=== PATIENT | male | born 1990 | race Two or more races ===

== ENCOUNTER 2024-02-14 09:50 | Emergency (ER) | payer OTHER ==
[~2024-02-14] VITALS: Ht 180.3 cm; Wt 74.4 kg
[2024-02-14] MEDS ORDERED: LANTUS SOL100 UNIT/1 SQ (10:11)
[2024-02-14] MEDS ORDERED: INSULIN REGULAR, HUMAN 1,000 UNIT/10 ML UNITS IV ONE (10:45)
[2024-02-14] MEDS ORDERED: 0.9 % SODIUM CHLORIDE 1,000 ML IV SCH (10:45)
[2024-02-14] MEDS ORDERED: ONDANSETRON HCL 2 MG/ML VIAL ONE (10:53)
[2024-02-14] MEDS ORDERED: ONDANSETRON HCL 2 MG/ML VIAL IV ONE (11:00)
[2024-02-14 11:20] LABS: HEMATOCRIT 47.8 % (39.0-48.0); HEMOGLOBIN 16.5 g/dL (13-16.00); MEAN CELL VOLUME 90.3 fL (80.0-100.00); MEAN CORPUSCULAR HEMOGLOBIN 31.1 pg (27.00-32.0); MEAN CORPUSCULAR HGB CONC 34.4 g/dl (32.0-36.0); PLATELET COUNT 199 K/uL (150-450)
[2024-02-14 11:23] LABS: URINE APPEARANCE Clear; URINE BILIRRUBIN Negative (NEGATIVE); URINE BLOOD Negative; URINE COLOR Yellow; URINE LEUKOCYTE Negative; URINE NITRATE Negative; URINE PROTEIN Negative (NEGATIVE)
[2024-02-14 11:29] LABS: URINE BACTERIA 0 uL (0.0-1933); URINE EPITHELIAL CELLS 0.4 uL (0.0-38.8); URINE GLUCOSE >=1000 MG/DL (NEGATIVE); URINE KETONE >=160 (NEGATIVE); URINE WBC 0.8 uL (0.0-23.2)
[2024-02-14 11:52] LABS: ALBUMIN 4.5 gm/dL (3.4-5.0); BILIRUBIN TOTAL 1.8 mg/dL (0.3-1.2); CALCIUM 9.8 mg/dL (8.5-10.1); CREATININE SERUM 1.04 mg/dL (0.70-1.30); GFR 82.76; GLOBULINA 3.9 G/DL (2.4-3.5); POTASSIUM 4.82 mEq/L (3.5-5.1); TOTAL PROTEIN 8.4 gm/dL (6.4-8.2)
[2024-02-14] MEDS ORDERED: INSULIN REGULAR HUMAN 100 UNIT IV ONE (12:45)
[2024-02-14] MEDS ORDERED: INSULIN REGULAR, HUMAN 100 UNITS in 0.9 % SODIUM CHLORIDE 100 ML IV SCH (13:00)
[2024-02-14 13:17] LABS: ABG PH 7.387 (7.35-7.45); ABG PO2 114.3 mmHg (80-100); BICARBONATE 18.8 mmol/l (23-25); SaO2 98.3 %; Tco2 19.8 mmol/l
[2024-02-14 13:18] LABS: allen test SATISFACTORY; o2 21 %; puncture site RADIAL LEFT
== END 2024-02-14 16:23 | disposition home or self-care (01) ==
LOC: ER 09:51
PROVIDERS: Emergency Medicine
DX: E11.65 Type 2 diabetes mellitus with hyperglycemia (principal); Z91.013 Allergy to seafood; R53.1 Weakness

== ENCOUNTER 2024-04-04 08:06 | Emergency (ER) | payer OTHER ==
[~2024-04-04] VITALS: Ht 180.3 cm; Wt 79.4 kg
[~2024-04-04 08:06] MED LIST: LANTUS SOL100 UNIT/1 SQ
[2024-04-04] MEDS ORDERED: INSULIN REGULAR HUMAN (08:31)
[2024-04-04] MEDS ORDERED: INSULIN REGULAR, HUMAN 1,000 UNIT/10 ML UNITS SUBCUTANEO ONE ×2 (08:45→12:00)
[2024-04-04] MEDS ORDERED: ONDANSETRON HCL 2 MG/ML VIAL IV ONE (09:00)
[2024-04-04] MEDS ORDERED: FAMOtidine 10 MG/ML (4ML VIAL) IV ONE (09:00)
[2024-04-04] MEDS ORDERED: 0.9 % SODIUM CHLORIDE 1,000 ML IV ONE (09:00)
[2024-04-04 09:37] LABS: HEMATOCRIT 45.1 % (39.0-48.0); HEMOGLOBIN 15.8 g/dL (13-16.00); MEAN CELL VOLUME 89.5 fL (80.0-100.00); MEAN CORPUSCULAR HEMOGLOBIN 31.3 pg (27.00-32.0); PLATELET COUNT 230 K/uL (150-450); RED BLOOD COUNT 5.04 M/uL (4.00-6.00); RED CELL DISTRIBUTION WIDTH 13.2 % (11.5-14.5)
[2024-04-04 09:50] LABS: ABG PO2 103.1 mmHg (80-100); ABG pCO2 34.4 mmHg (35-45); BASE EXCESS -8.9 mmol/l; BICARBONATE 16.5 mmol/l (23-25); SaO2 96.9 %; Tco2 17.6 mmol/l
[2024-04-04 09:56] LABS: BILIRUBIN TOTAL 1.95 mg/dL (0.3-1.2); CALCIUM 10.9 mg/dL (8.5-10.1); CREATININE SERUM 1.16 mg/dL (0.70-1.30); GFR 72.96; GLOBULINA 3.5 G/DL (2.4-3.5); POTASSIUM 5.15 mEq/L (3.5-5.1); TOTAL PROTEIN 8.5 gm/dL (6.4-8.2)
[2024-04-04 10:19] LABS: PH,URINE 5.5 (5.0-8.0); URINE APPEARANCE Clear; URINE BILIRRUBIN Negative (NEGATIVE); URINE BLOOD NHT; URINE COLOR Yellow; URINE LEUKOCYTE Negative; URINE NITRATE Negative; URINE PROTEIN Negative (NEGATIVE); URINE UROBILINOGEN 0.2 E.U./dl
[2024-04-04 10:22] LABS: URINE RBC 12.6 uL (0.0-20.8); URINE WBC 2.7 uL (0.0-23.2)
[2024-04-04 10:27] LABS: URINE BACTERIA 3.7 uL (0.0-1933); URINE EPITHELIAL CELLS 0.9 uL (0.0-38.8); URINE GLUCOSE >=1000 MG/DL (NEGATIVE); URINE KETONE >=160 (NEGATIVE)
[2024-04-04 12:29] LABS: allen test SATISFACTORY; o2 21 %; puncture site RADIAL RIGHT
[2024-04-04 12:35] LABS: HEMATOCRIT 42.6 % (39.0-48.0); HEMOGLOBIN 14.4 g/dL (13-16.00); MEAN CELL VOLUME 90.2 fL (80.0-100.00); MEAN CORPUSCULAR HEMOGLOBIN 30.4 pg (27.00-32.0); MEAN CORPUSCULAR HGB CONC 33.7 g/dl (32.0-36.0); PLATELET COUNT 162 K/uL (150-450); RED BLOOD COUNT 4.73 M/uL (4.00-6.00); RED CELL DISTRIBUTION WIDTH 13.2 % (11.5-14.5)
[2024-04-04 12:44] LABS: ALBUMIN 4.1 gm/dL (3.4-5.0); BILIRUBIN TOTAL 0.92 mg/dL (0.3-1.2); CREATININE SERUM 0.84 mg/dL (0.70-1.30); GFR 105.89; GLOBULINA 3.1 G/DL (2.4-3.5); POTASSIUM 4.94 mEq/L (3.5-5.1); TOTAL PROTEIN 7.2 gm/dL (6.4-8.2)
== END 2024-04-04 14:10 | disposition home or self-care (01) ==
LOC: ER 08:08
PROVIDERS: General Practice
DX: E11.65 Type 2 diabetes mellitus with hyperglycemia (principal); Z79.4 Long term (current) use of insulin; Z87.09 Personal history of other diseases of the respiratory system; Z91.013 Allergy to seafood